=== PATIENT | female | born 1945 | race Caucasian/White ===

== ENCOUNTER 2020-02-24 09:47 | Inpatient (IN) | payer OTHER ==
[2020-02-24 10:13] LABS: Basophils % 0.5 % (0-1.3); Lymphocytes % 18.2 % (15.3-44.8); RBC Red Blood Cell Count 3.29 M/uL (3.86-4.86)
[2020-02-24 10:19] LABS: Protime INR 0.99
[2020-02-24 10:36] LABS: ALT/SGPT 20 U/L (12-78); AST/SGOT 19 U/L (15-37); Albumin 2.7 g/dL (3.4-5.0); Alkaline Phosphatase 105 U/L (45-117); BUN Blood Urea Nitrogen 27 mg/dL (7-18); Bicarbonate 29 mmol/L (21-32); Bilirubin Direct < 0.1 mg/dL (0-0.2); Bilirubin Total 0.3 mg/dL (0.2-1.0); Glucose Level 84 mg/dL (74-106); Magnesium 2.1 mg/dL (1.8-2.4); NT PRO-BNP 202 pg/mL (<450); Potassium 4.1 mmol/L (3.5-5.1); Sodium Level 144 mmol/L (136-145); Troponin (Emerg Dept Use Only) < 0.02 ng/mL (0.0-0.045)
[2020-02-24] MEDS ORDERED: NA CHLORIDE 0.9% 1,000 ML ONE (10:44)
--- NOTE | 2020-02-24 11:08 | ER ---
Nurse's Notes [facility] Name: Emily Rodriguez Age: 74 yrs Sex: Female : 1945 Arrival Date: 02/24/2020 Time: 09:48 Bed 3 Private MD: Diagnosis: Displaced intertrochanteric fracture of left femur;Fall due to bumping against object Presentation: 02/23 09:48 Chief complaint: EMS states: pt from [facility], staff said she got tangled in the tw2 sheets, then tripped \T\ fell, NO LOC, staff found her right away, they noticed outward rotation of LEFT leg and hip pain, we gave 50 mcg of Fentanyl and approx 500 ml NS, vs 90/47 hr 50's staff said that was her normal, pt also has dementia a\T\o x1 only which is her baseline. Coronavirus screen: At this time, the client does not indicate any symptoms associated with coronavirus-19. Ebola Screen: Patient denies travel to an Ebola-affected area in the 21 days before illness onset. Initial Sepsis Screen: Does the patient meet any 2 criteria? No. Patient's initial sepsis screen is negative. Does the patient have a suspected source of infection? No. Patient's initial sepsis screen is negative. Risk Assessment: Do you want to hurt yourself or someone else? Patient reports no desire to harm self or others. Onset of symptoms was February 24, 2020. 09:48 Method Of Arrival: EMS: [facility] tw2 09:49 Care prior to arrival: None. Mechanism of Injury: Fall from standing position. hb 09:55 Acuity: MARYLIN 2 hb 09:55 Trauma event details: Injury occurred in the [facility], Injury occurred: at home. Injury occurred: February 24, 2020. Triage Assessment: 09:52 General: Appears in no apparent distress. Behavior is calm. Pain: Complains of pain in tw2 left hip. Neuro: Level of Consciousness is awake, alert, Oriented to person. Trauma Activation: Alert Physician: ED Physician; Name: ; Notified At: ; Arrived At: Physician: General Surgeon; Name: ; Notified At: ; Arrived At: Physician: Radiology; Name: ; Notified At: ; Arrived At: Physician: Respiratory; Name: ; Notified At: ; Arrived At: Physician: Lab; Name: ; Notified At: ; Arrived At: Historical: - Allergies: 10:06 No Known Allergies; tw2 - Home Meds: 10:06 atorvastatin 20 mg oral tab 1 tab once daily [Active]; cosentyx sensoready pen 150 tw2 mg/ml SubQ once a day for psoriasis [Active]; donepezil 5 mg oral TbDL 1 tab once daily [Active]; donepezil 10 mg oral tab 1 tab once daily [Active]; folic acid 1 mg Oral tab 1 tab once daily [Active]; Invokana 100 mg oral tab 1 tab once daily [Active]; Januvia 100 mg oral tab 1 tab once daily [Active]; Levemir FlexTouch 100 unit/mL (3 mL) subcutaneous inpn 20 units subq in morning [Active]; Lexapro 10 mg Oral tab 1 tab once daily [Active]; mirtazapine 15 mg Oral TbDL 1 tab once daily [Active]; - PMHx: 10:06 Dementia; Diabetes - IDDM; osteoarthritis; GERD; CAD; tw2 - Immunization history: Last tetanus immunization: unknown. - Social history:: Smoking status: unknown. Screenin:51 Abuse screen: Denies threats or abuse. Denies injuries from another. Tuberculosis hb screening: No symptoms or risk factors identified. 09:53 Nutritional screening: No deficits noted. Fall Risk Secondary diagnosis (15 points) tw2 dementia, impaired mobility. Primary Survey: :49 NO uncontrolled hemorrhage observed. A: The patient is alert. Airway: patent, No hb supplemental oxygen in use on arrival. Breathing/Chest: Respiratory pattern: regular, Respiratory effort: spontaneous, unlabored, Breath sounds: clear, bilaterally. Chest inspection: symmetrical rise and fall of the chest. Circulation: Pulses: palpable right radial artery, right dorsalis pedis artery, left radial artery and left dorsalis pedis artery. Skin color: pale, Skin temperature: warm, dry. Disability Alert. Exposure/Environment: There is no evidence of uncontrolled external bleeding. 10:48 Reassessment Airway Airway Patent Breathing/Chest Respiratory pattern Regular tw2 Respiratory effort Spontaneous Unlabored Breath sounds Clear Chest inspection Symmetrical Circulation Heart tones Present Disability Alert. Secondary Survey: :49 HEENT: No deficits noted. Gastrointestinal: No deficits noted. : No deficits noted. hb Musculoskeletal: shortening and external rotation of left leg, pelvic binder in place. Assessment: 09:51 General: Appears in no apparent distress. Behavior is cooperative, agitated. Pain: hb Unable to use pain scale. Does not appear to understand pain scale. Patient appears agitated, FLACC scale score is 6 out of 10. Neuro: Level of Consciousness is awake, alert, confused, Oriented to person. EENT: No signs and/or symptoms were reported regarding the EENT system. Cardiovascular: Heart tones S1 S2 Capillary refill < 3 seconds Patient's skin is warm and dry. Pulses are 3+ in left dorsalis pedis artery. Respiratory: Airway is patent Respiratory effort is even, unlabored, Respiratory pattern is regular, symmetrical, Breath sounds are clear bilaterally. GI: No signs and/or symptoms were reported involving the gastrointestinal system. : No signs and/or symptoms were reported regarding the genitourinary system. Derm: Skin is intact, is thin, Skin is dry, Skin is pale, Skin temperature is warm. Musculoskeletal: shortening and external rotation of left leg noted, pelvic binder in place. 10:43 Reassessment: No changes from previously documented assessment. Patient and/or family tw2 updated on plan of care and expected duration. Pain level reassessed. pt back from imaging at this time. 11:50 Reassessment: No changes from previously documented assessment. Patient and/or family tw2 updated on plan of care and expected duration. Pain level reassessed. 13:04 Reassessment: No changes from previously documented assessment. Patient and/or family tw2 updated on plan of care and expected duration. Pain level reassessed. 13:43 Reassessment: No changes from previously documented assessment. Patient and/or family tw2 updated on plan of care and expected duration. Pain level reassessed. Vital Signs: 09:48 BP 86 / 70; Pulse 53; Resp 16; Pulse Ox 98% on R/A; Weight 81.65 kg (R); tw2 10:00 Temp 97.8(A); tw2 10:55 BP 102 / 52; Pulse 56; Resp 16; Pulse Ox 100% on R/A; tw2 11:55 BP 95 / 51; Pulse 61; Resp 17; Pulse Ox 100% on R/A; tw2 12:55 BP 96 / 57; Pulse 69; Resp 16; Pulse Ox 100% on R/A; tw2 13:43 BP 95 / 52; Pulse 64; Resp 16; Pulse Ox 96% on R/A; tw2 Alice Coma Score: 09:51 Eye Response: spontaneous(4). Verbal Response: confused(4). Motor Response: obeys hb commands(6). Total: 14. Trauma Score (Adult): 09:51 Eye Response: spontaneous(1); Verbal Response: confused(1); Motor Response: obeys hb commands(2); Systolic BP: 76 to 89 mm Hg(3); Respiratory Rate: 10 to 29 per min(4); Morris Score: 14; Trauma Score: 11 ED Course: 09:48 Patient arrived in ED. tw2 09:48 Maintain EMS IV. Dressing intact. Good blood return noted. Site clean \T\ dry. Gauge \T\ tw 2 site: 20 g right forearm. 09:51 Sushil Garzon MD is Attending Physician. jackie 09:51 Brenda Calloway, RN is Primary Nurse. hb 09:51 Patient has correct armband on for positive identification. Placed in gown. Bed in low hb position. Call light in reach. Side rails up X2. 09:51 Patient maintains SpO2 saturation greater than 95% on room air. hb 09:52 Triage completed. tw2 09:53 Arm band placed on. tw2 09:53 Thermoregulation: warm blanket given to patient. tw2 10:17 EKG done, by ED staff, reviewed by Sushil Garzon MD. mh5 10:40 XRAY Chest (1 view) In Process Unspecified. EDMS 10:40 Pelvis XRAY In Process Unspecified. EDMS 10:40 Hip Left 2 View XRAY In Process Unspecified. EDMS 10:40 Femur Left XRAY In Process Unspecified. EDMS 10:50 Hamlin cath inserted, using sterile technique, 18 Fr., by de, balloon inflated, to tw2 gravity drainage, urine specimen collected. returned cloudy urine. Patient tolerated well. Noemi Pompa at bedside at this time to serve as tent worker and assist with pt trying to grab at supplies. 11:00 Urine collected: Hamlin catheter specimen, cloudy. [facility] 11:01 Warm blanket given. teletypesetter monitor on. Pulse ox on. NIBP on. [facility] 11:05 Velasquez Navas is Hospitalizing Provider. jackie 11:11 Harvey Moreno MD is Hospitalizing Provider. jackie 11:[address] [facility] 12:26 Spoke with Deb at [facility] re: next of kin contact for surgery consent, will have asmita Beard call lashell. 13:05 Patient admitted, IV remains in place. tw2 13:06 No provider procedures requiring assistance completed. tw2 13:07 Awaiting: unsuccessful attempt to call report at this time. tw2 Administered Medications: 10:48 Drug: NS 0.9% 500 ml Route: IV; Rate: bolus; Site: right hand; tw2 11:14 Follow up: Response: No adverse reaction; IV Intake: 500ml tw2 11:14 Follow up: IV Status: Completed infusion; IV Intake: 500ml tw2 11:14 Drug: NS 0.9% 1000 ml Route: IV; Rate: 125 ml/hr; Site: right wrist; tw2 13:33 Follow up: IV Status: Infusion continued upon admission tw2 13:40 Drug: D50W 50 ml Route: IVP; Site: right forearm; 13:44 Follow up: Response: No adverse reaction tw2 Point of Care Testing: Blood Glucose: 13:35 Blood Glucose: 68 mg/dL; tw2 13:35 provider notified. tw2 Ranges: Intake: 09:51 PO: 0ml; Total: 0ml. hb 11:14 IV: 500ml; Total: 500ml. tw2 11:14 IV: 500ml; Total: 1000ml. tw2 Outcome: 11:07 Decision to Hospitalize by Provider. [facility] 13:05 Patient's length of stay in the Emergency Department was greater than 2 hours. tw2 admission processPatient's length of stay extended due to 13:43 Admitted to Med/surg accompanied by noemi, via stretcher, room 215, with chart, Report tw2 called to RED lamas 13:43 Condition: stable 13:43 Instructed on the need for admit. 13:45 Patient left the ED. tw2 Signatures: Dispatcher [employer] Sushil Whyte MD MD cha Munoz, Edgar, RN RN Brenda Calloway RN RN Ana De La Torre RN RN [address] [facility] Corrections: (The following items were deleted from the chart) 09:56 09:48 Acuity: MARYLIN 3 tw2 hb 09:57 09:49 Trauma event details: Injury occurred in the [facility], Injury occurred: hb at home. Injury occurred: February 24, 2020 hb 09:57 09:49 Trauma Activation: Alert hb hb : 09:48 Acuity: MARYLIN 2 hb hb 10: 09:48 Chief complaint: EMS states: pt from [facility], staff said she got tangled in tw2 the sheets, then tripped \T\ fell, NO LOC, staff found her right away, they noticed outward rotation of LEFT leg and hip pain, we gave 50 mcg of Fentanyl and approx 500 ml NS, vs 90/47 hr 50's staff said that was her normal tw2 10:43 10:42 Reassessment: pt in imaging at this time not available for vs or hamlin catheter tw2 insertion at this time. tw2 10:56 10:43 Reassessment Breathing/Chest tw2 tw2
--- NOTE | 2020-02-24 11:08 | EDPHYS ---
Physician Documentation [facility] Name: Emily Rodriguez Age: 74 yrs Sex: Female : 1945 Arrival Date: 02/24/2020 Time: 09:48 Bed 3 Private MD: ED Physician Sushil Garzon HPI: 02/23 09:56 This 74 yrs old Female presents to ER via EMS with complaints of Fall Injury, jackie Hip Pain. 09:56 Details of fall: The patient fell from an upright position, while walking. Onset: The jackie symptoms/episode began/occurred just prior to arrival. Associated injuries: The patient sustained left hip and left upper thigh, decreased range of motion, painful injury. Severity of symptoms: At their worst the symptoms were mild, moderate, in the emergency department the symptoms are unchanged. The patient has not experienced similar symptoms in the past. Historical: - Allergies: 10:06 No Known Allergies; tw2 - Home Meds: 10:06 atorvastatin 20 mg oral tab 1 tab once daily [Active]; cosentyx sensoready pen 150 tw2 mg/ml SubQ once a day for psoriasis [Active]; donepezil 5 mg oral TbDL 1 tab once daily [Active]; donepezil 10 mg oral tab 1 tab once daily [Active]; folic acid 1 mg Oral tab 1 tab once daily [Active]; Invokana 100 mg oral tab 1 tab once daily [Active]; Januvia 100 mg oral tab 1 tab once daily [Active]; Levemir FlexTouch 100 unit/mL (3 mL) subcutaneous inpn 20 units subq in morning [Active]; Lexapro 10 mg Oral tab 1 tab once daily [Active]; mirtazapine 15 mg Oral TbDL 1 tab once daily [Active]; - PMHx: 10:06 Dementia; Diabetes - IDDM; osteoarthritis; GERD; CAD; tw2 - Immunization history: Last tetanus immunization: unknown. - Social history:: Smoking status: unknown. ROS: 09:58 Constitutional: Negative for fever, chills, and weight loss, Eyes: Negative for injury, jackie pain, redness, and discharge, ENT: Negative for injury, pain, and discharge, Neck: Negative for injury, pain, and swelling, Cardiovascular: Negative for chest pain, palpitations, and edema, Respiratory: Negative for shortness of breath, cough, wheezing, and pleuritic chest pain, Abdomen/GI: Negative for abdominal pain, nausea, vomiting, diarrhea, and constipation, Back: Negative for injury and pain, : Negative for injury, bleeding, discharge, and swelling, Skin: Negative for injury, rash, and discoloration, Neuro: Negative for headache, weakness, numbness, tingling, and seizure, Psych: Negative for depression, anxiety, suicide ideation, homicidal ideation, and hallucinations, Allergy/Immunology: Negative for hives, rash, and allergies, Endocrine: Negative for neck swelling, polydipsia, polyuria, polyphagia, and marked weight changes, Hematologic/Lymphatic: Negative for swollen nodes, abnormal bleeding, and unusual bruising. 09:58 MS/extremity: Positive for injury or acute deformity, decreased range of motion, pain, tenderness, of the left hip and left upper thigh. Exam: 09:58 Constitutional: This is a well developed, well nourished patient who is awake, alert, jackie and in no acute distress. Head/Face: Normocephalic, atraumatic. Eyes: Pupils equal round and reactive to light, extra-ocular motions intact. Lids and lashes normal. Conjunctiva and sclera are non-icteric and not injected. Cornea within normal limits. Periorbital areas with no swelling, redness, or edema. ENT: Nares patent. No nasal discharge, no septal abnormalities noted. Tympanic membranes are normal and external auditory canals are clear. Oropharynx with no redness, swelling, or masses, exudates, or evidence of obstruction, uvula midline. Mucous membranes moist. Neck: Trachea midline, no thyromegaly or masses palpated, and no cervical lymphadenopathy. Supple, full range of motion without nuchal rigidity, or vertebral point tenderness. No Meningismus. Chest/axilla: Normal chest wall appearance and motion. Nontender with no deformity. No lesions are appreciated. Cardiovascular: Regular rate and rhythm with a normal S1 and S2. No gallops, murmurs, or rubs. Normal PMI, no JVD. No pulse deficits. Respiratory: Lungs have equal breath sounds bilaterally, clear to auscultation and percussion. No rales, rhonchi or wheezes noted. No increased work of breathing, no retractions or nasal flaring. Abdomen/GI: Soft, non-tender, with normal bowel sounds. No distension or tympany. No guarding or rebound. No evidence of tenderness throughout. Back: No spinal tenderness. No costovertebral tenderness. Full range of motion. Female : Normal external genitalia. Skin: Warm, dry with normal turgor. Normal color with no rashes, no lesions, and no evidence of cellulitis. Psych: Awake, alert, with orientation to person, place and time. Behavior, mood, and affect are within normal limits. 09:58 Musculoskeletal/extremity: ROM: limited active range of motion due to pain, limited passive range of motion due to pain, Circulation is intact in all extremities. Sensation intact. Compartment Syndrome exam of affected extremity: is normal. Weight bearing: is unable to bear weight, DVT Exam: negative Homans' sign noted on exam, no appreciated bluish discoloration, no erythema, no increased warmth, pain, swelling, tenderness. 16:22 ECG was reviewed by the Attending Physician. [facility] Vital Signs: 09:48 BP 86 / 70; Pulse 53; Resp 16; Pulse Ox 98% on R/A; Weight 81.65 kg (R); tw2 10:00 Temp 97.8(A); tw2 10:55 BP 102 / 52; Pulse 56; Resp 16; Pulse Ox 100% on R/A; tw2 11:55 BP 95 / 51; Pulse 61; Resp 17; Pulse Ox 100% on R/A; tw2 12:55 BP 96 / 57; Pulse 69; Resp 16; Pulse Ox 100% on R/A; tw2 13:43 BP 95 / 52; Pulse 64; Resp 16; Pulse Ox 96% on R/A; tw2 Alice Coma Score: 09:51 Eye Response: spontaneous(4). Verbal Response: confused(4). Motor Response: obeys hb commands(6). Total: 14. Trauma Score (Adult): 09:51 Eye Response: spontaneous(1); Verbal Response: confused(1); Motor Response: obeys hb commands(2); Systolic BP: 76 to 89 mm Hg(3); Respiratory Rate: 10 to 29 per min(4); Alice Score: 14; Trauma Score: 11 MDM: 09:51 Patient medically screened. [facility] 09:59 Differential diagnosis: dislocation, closed fracture, contusion, hip fracture, jackie intertrochanteric fracture, femoral neck fracture, femoral shaft fracture, strain. Differential diagnosis: contusion, fracture, multiple trauma, sprain, strain. Data reviewed: vital signs, nurses notes, EMS record, lab test result(s), EKG, radiologic studies, plain films. Data interpreted: event marketing manager: rate is 53 beats/min, rhythm is regular, Pulse oximetry: on room air is 98 %. Test interpretation: by ED physician or midlevel provider: ECG, plain radiologic studies. Counseling: I had a detailed discussion with the patient and/or guardian regarding: the historical points, exam findings, and any diagnostic results supporting the discharge/admit diagnosis, lab results, radiology results, the need for further work-up and treatment in the hospital. 11:04 ED course: to dr navas, henrique krishna. [facility] 02/23 09:55 Order name: Basic Metabolic Panel; Complete Time: 11:03 [facility] 02/23 09:55 Order name: CBC with Diff; Complete Time: 11: [facility] 02/23 09:55 Order name: LFT's; Complete Time: 11: [facility] 02/23 09:55 Order name: Magnesium; Complete Time: 11:03 [facility] 02/23 09:55 Order name: NT PRO-BNP; Complete Time: 11:03 [facility] 02/23 09:55 Order name: PT-INR; Complete Time: 11:03 [facility] 02/23 09:55 Order name: Troponin (emerg Dept Use Only); Complete Time: 11:03 [facility] 02/23 09:55 Order name: Urine Culture [facility] 02/23 09:55 Order name: Type And Screen; Complete Time: 11:03 [facility] 02/23 11:06 Order name: Urine Dipstick--Ancillary (enter results) 02/23 11:41 Order name: ABO/RH no charge [facility] 02/23 12:13 Order name: CBC with Automated Diff [facility] 02/23 12:13 Order name: CBC with Automated Diff [facility] 02/23 12:13 Order name: Comprehensive Metabolic Panel [facility] 02/23 09:55 Order name: XRAY Chest (1 view) [facility] 02/23 09:55 Order name: Pelvis XRAY [facility] 02/23 09:55 Order name: Hip Left 2 View XRAY [facility] 02/23 09:55 Order name: Femur Left XRAY [facility] 02/23 12:13 Order name: Comprehensive Metabolic Panel [facility] 02/23 12:13 Order name: Magnesium [facility] 02/23 12:13 Order name: Magnesium [facility] 02/23 12:13 Order name: Phosphorus [facility] 02/23 12:13 Order name: Phosphorus [facility] 02/23 12:13 Order name: Protime (+INR) [facility] 02/23 12:13 Order name: Protime (+INR) [facility] 02/23 12:13 Order name: PTT, Activated Partial Thromb [facility] 02/23 12:13 Order name: PTT, Activated Partial Thromb [facility] 02/23 09:55 Order name: EKG; Complete Time: 09:56 [facility] 02/23 09:55 Order name: Cardiac monitoring; Complete Time: 10:00 [facility] 02/23 09:55 Order name: EKG - Nurse/Tech; Complete Time: 10:17 [facility] 02/23 09:55 Order name: IV Saline Lock; Complete Time: 10:56 [facility] 02/23 09:55 Order name: Labs collected and sent; Complete Time: 10:56 [facility] 02/23 09:55 Order name: O2 Per Protocol; Complete Time: 10:00 [facility] 02/23 09:55 Order name: O2 Sat Monitoring; Complete Time: 10:00 [facility] 02/23 09:55 Order name: Urine Dipstick-Ancillary (obtain specimen); Complete Time: 10:56 [facility] 02/23 10:01 Order name: Browne; Complete Time: 10:34 [facility] 02/23 12:13 Order name: CONS Physician Consult [facility] 02/23 12:13 Order name: NPO [facility] 02/23 13:32 Order name: Blood Glucose Level; Complete Time: 13:34 tw2 EC:07 Rate is 52 beats/min. Rhythm is regular. QRS Cam[place] is Normal. CO interval is normal. QRS jackie interval is normal. QT interval is normal. No Q waves. T waves are Normal. No ST changes noted. Clinical impression: Sinus bradycardia. Interpreted by me. Reviewed by me. Administered Medications: 10:48 Drug: NS 0.9% 500 ml Route: IV; Rate: bolus; Site: right hand; tw2 11:14 Follow up: Response: No adverse reaction; IV Intake: 500ml tw2 11:14 Follow up: IV Status: Completed infusion; IV Intake: 500ml tw2 11:14 Drug: NS 0.9% 1000 ml Route: IV; Rate: 125 ml/hr; Site: right wrist; tw2 13:33 Follow up: IV Status: Infusion continued upon admission tw2 13:40 Drug: D50W 50 ml Route: IVP; Site: right forearm; em 13:44 Follow up: Response: No adverse reaction tw2 Point of Care Testing: Blood Glucose: 13:35 Blood Glucose: 68 mg/dL; tw2 13:35 provider notified. tw2 Ranges: Critical Glucose Levels:Adult <50 mg/dl or >400 mg/dl <40 mg/dl or >180 mg/dl Disposition: 02/24/20 11:07 Hospitalization ordered by Harvey Moreno for Inpatient Admission. Preliminary diagnosis are Displaced intertrochanteric fracture of left femur, Fall due to bumping against object. - Bed requested for Telemetry/MedSurg (Inpatient). - Status is Inpatient Admission. tw2 - Condition is Stable. - Problem is new. - Symptoms have improved. Signatures: Dispatcher [employer] EDSushil Luz MD MD cha Munoz, Edgar, RN RN Brenda Calloway RN RN Ana Pruitt RN RN tw2 Beth Perry Corrections: (The following items were deleted from the chart) 11:11 11:07 Hospitalization Ordered by Velasquez Navas for Inpatient Admission. Preliminary jackie diagnosis is Displaced intertrochanteric fracture of left femur; Fall due to bumping against object. Bed requested for Telemetry/MedSurg (Inpatient). Status is Inpatient Admission. Condition is Stable. Problem is new. Symptoms have improved. jackie 12:24 11:11 02/24/2020 11:07 Hospitalization Ordered by Harvey Moreno MD for Inpatient eb Admission. Preliminary diagnosis is Displaced intertrochanteric fracture of left femur; Fall due to bumping against object. Bed requested for Telemetry/MedSurg (Inpatient). Status is Inpatient Admission. Condition is Stable. Problem is new. Symptoms have improved. jackie 13:45 12:24 02/24/2020 11:07 Hospitalization Ordered by Harvey Moreno MD for Inpatient tw2 Admission. Preliminary diagnosis is Displaced intertrochanteric fracture of left femur; Fall due to bumping against object. Bed requested for Telemetry/MedSurg (Inpatient). Status is Inpatient Admission. Condition is Stable. Problem is new. Symptoms have improved. eb
[2020-02-24 11:26] LABS: Urine Blood NEGATIVE (NEG); Urine Glucose 3+ (NEG); Urine Protein NEGATIVE (NEG); Urine Specific Gravity 1.025 (1.005-1.030)
--- NOTE | 2020-02-24 11:46 | RAD REPORT ---
EXAM DESCRIPTION: RAD - Chest Single View - 02/24/2020 10:40 am CLINICAL HISTORY: COUGH, hip fracture, preoperative examination COMPARISON: None TECHNIQUE: AP portable chest image was obtained 02/24/2020 10:40 am . FINDINGS: Lung volumes are relatively low. No pulmonary contusion, infiltrate or acute lung parenchy mal finding. Patient has a mildly prominent baseline interstitial pattern. No failure or volume overl oad seen. Heart and vasculature are normal. No measurable pleural effusion and no pneumothorax. No acute bony abnormality seen. No acute aortic findings suspected. IMPRESSION: No acute cardiopulmonary process.
--- NOTE | 2020-02-24 11:47 | RAD REPORT ---
EXAM DESCRIPTION: RAD - Pelvis - 02/24/2020 10:40 am CLINICAL HISTORY: PAIN, trip and fall COMPARISON: No comparisons TECHNIQUE: AP imaging of the pelvis was obtained. FINDINGS: Degenerative change present at the lumbosacral junction only partially imaged on this stud y. Bowel partially obscures the sacral ala but no fracture confirmed. SI joint degenerative changes a re present. No fracture of the bony pelvis identifiable. Left proximal femur fracture is separately detailed. No acute right hip joint finding. Moderate stool volume throughout the colon. Phleboliths are present. IMPRESSION: No fracture of the bony pelvis identified. Proximal left femur fracture is separately detailed.
--- NOTE | 2020-02-24 11:51 | RAD REPORT ---
EXAM DESCRIPTION: RAD - Hip Left 2 View - 02/24/2020 10:40 am CLINICAL HISTORY: PAIN, fall, hip pain COMPARISON: No comparisons FINDINGS: AP and oblique views of the left hip joint were obtained. Patient had limited mobility. Comminuted proximal left femur fracture is present. No dislocation of the femoral head. No AVN or foc al femoral head abnormality. Lesser trochanter is a free fracture fragment with the fracture fragment extending approximately 4 cm along the medial shaft. There is an oblique intertrochanteric fracture present. Superior aspect of the greater trochanter also appears to be a free fracture fragment with o nly a few mm of distraction. No pathologic bone changes seen. Soft tissue edema or swelling present around the hip joint but no large hematoma identifiable. IMPRESSION: Comminuted proximal left femur fracture as detailed.
--- NOTE | 2020-02-24 11:53 | RAD REPORT ---
EXAM DESCRIPTION: RAD - Femur Left - 02/24/2020 10:40 am CLINICAL HISTORY: PAIN, fall, hip pain COMPARISON: Left hip same date FINDINGS: The proximal left femur, hip joint and proximal shaft visualized in detailed on the separa te hip report. The mid and distal shaft of the left femur is intact. No femoral condyle or patella acute finding. Li mited proximal tibia without suspicious finding. There is a focal 3 centimeter are can ring sclerotic focus at the diaphyseal metaphyseal junction of the distal left femur. This is incidental bone infar ct or enchondroma. There is no dislocation or periosteal reaction noted. No acute or suspicious bony finding. No air or foreign body in the soft tissues. No knee joint effusion. IMPRESSION: Left femur from midshaft to the proximal tibia shows no acute injury. Nonacute findings detailed in the body of the report. Proximal femur and hip joint are separately detailed.
[2020-02-24] MEDS ORDERED: ONDANSETRON 4 MG/2 ML VIAL IV PRN (12:06)
--- NOTE | 2020-02-24 13:38 | CON ---
Date of Consultation: 02/24/2020 History Of Present Illness: This is my first time seeing this patient to my knowledge. She is a 74- year-old female, who is a resident of a nursing facility. Unfortunately suffers from dementia. Appa rently, had an injury to her left lower extremity. She was taken to the emergency room where she was ruled out for other injuries. However, x-rays were taken, which demonstrated a displaced highly com minuted left proximal femur fracture. Physical Examination: She really is not able to tell me where she hurts. However, with palpation we can demonstrate that h er pain is essentially at the left hip. All of her other long bones or joints palpated without any s ign of pain. She is interactive but definitely cannot answer any questions appropriately. Imaging: Review of x-rays do reveal a comminuted displaced proximal left femur fracture. Assessment: This is a 74-year-old female now with a comminuted complex left proximal femur fracture. Plan: At this time, will need probably medical evaluation, but the plan is to place a long intramedu llary nail tomorrow using either open or closed reduction techniques. I attempted to call her next o f kin listed, however, only obtain a voicemail. She may not be there direct person to speak to. How ever, I will try another number. /REFUGIO Voice ID: [id number] Report ID: [id number]
[2020-02-24] MEDS ORDERED: D50W 25 GM/50 ML SYRINGE/VIAL IV ONE (13:48)
[2020-02-24] MEDS: NA CHLORIDE 0.9% 1,000 ML IV SCH (14:23)
[2020-02-24 15:24] VITALS: BMI 25.8
--- NOTE | 2020-02-24 16:29 | P.HP ---
Certification for Inpatient Patient admitted to: Inpatient With expected LOS: >2 Midnights Patient will require the following post-hospital care: None Practitioner: I am a practitioner with admitting privileges, knowledge of patient current condition, hospital course, and medical plan of care. Services: Services provided to patient in accordance with Admission requirements found in Title 42 Section 412.3 of the Code of Federal Regulations Patient History Date of Service: 02/24/20 Reason for admission: Status post fall with femur fracture History of Present Illness: Patient is a 74-year-old female who came to the hospital with left femur fracture. Patient was at the nursing facility and she apparently suffered a fall. She had her bedsheets draped around her legs. She was hollering in pain. Her bed sheets were moved, and it was noticed that she had possible injury to the left leg. EMS was called and they brought her into the hospital where x- rays revealed a left femur fracture. She had a proximal fracture and a oblique intertrochanteric fracture. She has a history of hypertension and coronary artery disease. She has had no cardiac issues over the last couple of years according to. Will get EKG and chest x-ray. She is low risk for any cardiopulmonary complications. She has a history of dementia. She is ambulatory. She normally walks around by herself. Benefits of surgery outweigh the risk. Patient is also a Jehovah Witness and does not want blood transfusions according to family per emergency room. I did contact contact the family but was not able to contact them at the 2 numbers I called-these were in her computer chart. Allergies No Known Allergies Allergy (Unverified 02/24/20 14:19) Home Medications: Atorvastatin Calcium 20 mg PO BEDTIME 02/24/20 Canagliflozin [Invokana] 1 tab PO DAILY 02/24/20 Donepezil [Aricept*] 2 tab PO BEDTIME 02/24/20 Escitalopram Oxalate [Lexapro] 1 tab PO DAILY 02/24/20 Folic Acid 1 mg PO DAILY 02/24/20 Insulin Detemir [Levemir Flextouch] 20 unit SQ DAILY 02/24/20 Mirtazapine 15 mg PO BEDTIME 02/24/20 Secukinumab [Cosentyx Pen] 150 mg SQ SEECOM 02/24/20 Sitagliptin Phosphate [Januvia*] 1 tab PO DAILY 09/12/20 Skin Cleanser [Cetaphil] 1 silvano TOP BEDTIME 02/24/20 - Past Medical/Surgical History Diabetic: Yes -: Dementia -: IDDM -: Osteoarthritis -: GERD -: CAD Past Surgical History: Unable to obtain - Family History Mother History Unknown: Yes Notes: Dementia - Social History Smoking Status: Never smoker Place [facility]idence[facility] Review of Systems is unable to be obtained Physical Examination - Vital Signs Temperature: 97.8 F Blood Pressure: 95/52 Pulse: 64 Respirations: 16 - Physical Exam General: Alert, In no apparent distress, Demented HEENT: Atraumatic, PERRLA, Mucous membr. moist/pink, EOMI, Sclerae nonicteric Neck: Supple, 2+ carotid pulse no bruit, No LAD, Without JVD or thyroid abnormality Respiratory: Clear to auscultation bilaterally, Normal air movement Cardiovascular: Regular rate/rhythm, Normal S1 S2 Gastrointestinal: Normal bowel sounds, Soft and benign, Non-distended, No tenderness Musculoskeletal: No clubbing, Tenderness, Other (Outward deviation of left leg) Integumentary: Other (Bruising) Neurological: Normal speech, Sensation intact, Cranial nerves 3-12 intact, Abnormal gait, Abnormal strength - Studies Laboratory Data (last 24 hrs) 02/24/20 10:05: PT 11.7, INR 0.99 02/24/20 10:05: WBC 11.1 H, Hgb 9.1 L, Hct 28.0 L, Plt Count 233 02/24/20 10:05: Sodium 144, Potassium 4.1, BUN 27 H, Creatinine 0.84, Glucose 84, Magnesium 2.1, Total Bilirubin 0.3, AST 19, ALT 20, Alkaline Phosphatase 105 Assessment & Plan - Problems (Diagnosis) (1) Femur fracture, left Current Visit: Yes Status: Acute Qualifiers: Encounter type: initial encounter Femur location: intertrochanteric Fracture type: closed Fracture alignment: nondisplaced Qualified Code(s): S72.145A - Nondisplaced intertrochanteric fracture of left femur, initial encounter for closed fracture (2) Alzheimer's type dementia Current Visit: Yes Status: Acute (3) Hypertension Current Visit: Yes Status: Acute (4) Coronary artery disease Current Visit: Yes Status: Acute (5) Patient is Presybeterian Current Visit: Yes Status: Acute - Plan Plan: 1. IV hydration 2. Orthopedic consultation 3. Pain controlled 4. DVT prophylaxis-Will hold around the perioperative period as patient is a Jehovah Witness and does not want blood transfusions 5. Physical therapy after surgery 6. EKG and monitor hemodynamics closely. 7. Benefits of surgery outweigh the risk and would recommend proceeding with surgery at this time; patient has not had any cardiac issues in the last few years. She does suffer from severe Alzheimer's dementia, but she gets around very well physically. If she is debilitated than morbidity and mortality rates increase significantly over the next 6 months. Discharge Plan: [facility] Plan to discharge in: Greater than 2 days - Advance Directives Does patient have a Living Will: Yes Does patient have a Durable POA for Healthcare: Yes - Code Status/Comfort Care Code Status Assessed: Yes Code Status: Full Code Critical Care: No Time Spent Managing PTS Care (In Minutes): 45
[2020-02-24] MEDS ORDERED: SECUKINUMAB 150 MG SQ SCH (16:30)
[2020-02-24] MEDS: CEFAZOLIN/SWI 1gm 1 GM/10 ML SYR IVP SCH (17:27)
[2020-02-24] MEDS ORDERED: CEFAZOLIN/SWI 1gm 1 GM/10 ML SYR IV SCH (18:00)
[2020-02-24] MEDS ORDERED: CEFAZOLIN/NS 1gm 1 GM/50 ML BAG IVPB SCH (18:00)
[2020-02-24] MEDS ORDERED: CEFAZOLIN/SWI 1gm 1 GM/10 ML SYR IVP SCH (18:00)
[2020-02-24] MEDS: MIRTAZAPINE 15 MG TAB PO SCH (22:17)
[2020-02-24] MEDS: DONEPEZIL HCL 5 MG TAB PO SCH (22:18)
[2020-02-24] MEDS: ATORVASTATIN 20 MG TAB PO SCH (22:19)
[2020-02-25] MEDS: CEFAZOLIN/SWI 1gm 1 GM/10 ML SYR IVP SCH ×3 (00:03→16:15)
[2020-02-25] MEDS: NA CHLORIDE 0.9% 1,000 ML IV SCH ×2 (01:34→16:15)
[2020-02-25 06:37] LABS: Absolute Lymphocytes (CBC) 1.1 K/uL (0.7-4.9); Basophils % 0.4 % (0-1.3); Hematocrit 21.9 % (36.0-45.0); Lymphocytes % 14.4 % (15.3-44.8); MPV 8.2 fL (7.6-11.3); RBC Red Blood Cell Count 2.57 M/uL (3.86-4.86)
[2020-02-25 06:40] LABS: Albumin 2.7 g/dL (3.4-5.0); Bilirubin Total 0.5 mg/dL (0.2-1.0); Magnesium 2.2 mg/dL (1.8-2.4); Phosphorus 3.5 mg/dL (2.5-4.9); Potassium 3.9 mmol/L (3.5-5.1); Protein, Total 5.9 g/dL (6.4-8.2)
[2020-02-25 07:03] LABS: Protime INR 1.05
[2020-02-25] MEDS ORDERED: propofoL 200 MG/20 ML VIAL IV ONE (08:23)
[2020-02-25] MEDS ORDERED: FENTANYL CITR 100 MCG/2 ML ONE (08:25)
[2020-02-25] MEDS ORDERED: Phenylephrine HCl 10 MG/ML 1 ML VIAL ONE (08:27)
[2020-02-25] MEDS ORDERED: CEFAZOLIN/SWI 1gm 1 GM/10 ML SYR ONE (08:44)
[2020-02-25] MEDS ORDERED: dexAMETHasone 10 MG/ML VIAL ONE (08:57)
[2020-02-25] MEDS ORDERED: KETOROLAC 30 MG/ML INJ ONE (08:57)
[2020-02-25] MEDS: INSULIN GLARGINE 100 UNITS/ML SQ SCH (09:00)
[2020-02-25] MEDS: ESCITALOPRAM 20 MG TAB PO SCH (09:00)
[2020-02-25] MEDS: SITAGLIPTIN PHOS 100 MG TAB PO SCH (09:00)
[2020-02-25] MEDS: FOLIC ACID 1 MG TABLET PO SCH (09:00)
[2020-02-25] MEDS ORDERED: KCL 20 MEQ/100 mL IVPB 20 MEQ/100 ML BAG IV SCH (09:00)
[2020-02-25] MEDS ORDERED: TRANEXAMIC ACID 1,000 MG in NA CHLORIDE 0.9% 50 ML IV ONE ×2 (09:00→10:00)
[2020-02-25] MEDS ORDERED: GLYCOPYRROLATE 0.2 MG/ML SYR ONE ×2 (09:21→09:43)
[2020-02-25] MEDS ORDERED: ATROPINE SULF 1 MG/10 ML SYR IV ONE (09:22)
--- NOTE | 2020-02-25 09:46 | EKG ---
Test Date: 2020-02-24 Test Time: 10:07:07 Activities Officer: BHAVIK MEASUREMENT RESULTS: Intervals: Rate: 52 DC: 156 QRSD: 80 QT: 472 QTc: 438 [place]: P: 71 DC: 156 QRS: -28 T: 8 INTERPRETIVE STATEMENTS: Sinus bradycardia Low voltage QRS Borderline ECG No previous ECG available for comparison Electronically Signed On 02-25-20 09:44:24 CDT by Homar Spencer
--- NOTE | 2020-02-25 10:18 | P.BOP ---
Preoperative diagnosis: left highly displaced IT fracture with subtrochanteric extension Postoperative diagnosis: same Primary procedure: left ALYSON leah fixation Estimated blood loss: 100ccs Anesthesia: General Complications: None Transferred to: Recovery Room Condition: Good
[2020-02-25] MEDS ORDERED: MORPHINE 4 MG/ML SYR IV ONE (10:35)
[2020-02-25] MEDS ORDERED: MORPHINE 4 MG/ML SYR ONE (10:46)
[2020-02-25] MEDS ORDERED: CEFAZOLIN/SWI 1gm 1 GM/10 ML SYR IVP SCH (12:00)
--- NOTE | 2020-02-25 12:48 | RAD REPORT ---
EXAM DESCRIPTION: RAD - Hip In Or - 02/25/2020 12:39 pm CLINICAL HISTORY: LEFT HIP IM LORA DONE IN OR 4 WITH DOCTOR ASA COMPARISON: Pelvis dated 02/24/2020 FINDINGS: Fluoroscopy time 3.1 minutes
[2020-02-25] MEDS ORDERED: ENOXAPARIN 40 MG/0.4 ML SQ SCH (16:00)
[2020-02-25] MEDS ORDERED: EPOETIN ALFA 20,000 UNIT/1 ML VIAL SQ SCH (16:00)
[2020-02-25] MEDS: HYDROMORPHONE HCL 1 MG/ML INJ IV PRN ×2 (16:13→22:54)
[2020-02-25] MEDS: IRON SUCROSE 200 MG in NA CHLORIDE 0.9% 250 ML IV SCH (16:15)
[2020-02-25 16:37] LABS: Absolute Lymphocytes (CBC) 0.7 K/uL (0.7-4.9); Basophils % 0.1 % (0-1.3); Lymphocytes % 9.5 % (15.3-44.8); MPV 8.4 fL (7.6-11.3); RBC Red Blood Cell Count 2.42 M/uL (3.86-4.86)
--- NOTE | 2020-02-25 17:24 | P.PN ---
Subjective Date of Service: 02/25/20 Patient to the OR today. Will monitor closely. Patient anemic and spoke with family and they are still wanting to proceed with surgery. Will need to give Procrit and iron infusions. Hopefully patient does not get severely anemic. Will monitor very closely. Review of Systems is unable to be obtained Physical Examination - Vital Signs Temperature: 97.8 F Blood Pressure: 95/52 Pulse: 64 Respirations: 17 Pulse Ox (%): 100 - Physical Exam General: Demented Respiratory: Clear to auscultation bilaterally, Normal air movement Cardiovascular: Regular rate/rhythm, Normal S1 S2 Gastrointestinal: Normal bowel sounds, Soft and benign, Non-distended Musculoskeletal: No clubbing, No swelling, No contractures Assessment & Plan - Problems (Diagnosis) (1) Femur fracture, left Current Visit: Yes Status: Acute Qualifiers: Encounter type: initial encounter Femur location: intertrochanteric Fracture type: closed Fracture alignment: nondisplaced Qualified Code(s): S72.145A - Nondisplaced intertrochanteric fracture of left femur, initial encounter for closed fracture (2) Alzheimer's type dementia Current Visit: Yes Status: Acute (3) Hypertension Current Visit: Yes Status: Acute (4) Coronary artery disease Current Visit: Yes Status: Acute (5) Patient is Anabaptist Current Visit: Yes Status: Acute - Plan Plan: 1. Gentle IV hydration 2. Orthopedic consultation appreciated 3. Pain controlled 4. DVT prophylaxis-Will hold around the perioperative period as patient is a Jehovah Witness and does not want blood transfusions and already anemic 5. Physical therapy after surgery 6. EKG and monitor hemodynamics closely. 7. Patient did well postoperatively. Hemoglobin only dropped to 6.8. She looks like she is doing well clinically. Spoke to the patient's daughter and they do want her to still be a full code. Explained that she would get Epogen and iron transfusion to help with the anemia-agreeable. Hopefully this will benefit her. Will monitor the patient closely. Discharge Plan: [facility] Plan to discharge in: Greater than 2 days - Advance Directives Does patient have a Living Will: Yes Does patient have a Durable POA for Healthcare: Yes - Code Status/Comfort Care Code Status: Full Code Critical Care: No Time Spent Managing PTS Care (In Minutes): 35
[2020-02-25 18:43] LABS: Blood Morphology Comment NOT SEEN (NOT SEEN); Platelet Estimate ADEQ; White Blood Cell Scan OK (OK)
[2020-02-25] MEDS: ATORVASTATIN 20 MG TAB PO SCH (21:02)
[2020-02-25] MEDS: MIRTAZAPINE 15 MG TAB PO SCH (21:02)
[2020-02-25] MEDS: DONEPEZIL HCL 5 MG TAB PO SCH (21:02)
[2020-02-26] MEDS: CEFAZOLIN/SWI 1gm 1 GM/10 ML SYR IVP SCH ×2 (00:07→09:45)
[2020-02-26] MEDS: NA CHLORIDE 0.9% 1,000 ML IV SCH (05:02)
[2020-02-26 06:22] LABS: Potassium 4.3 mmol/L (3.5-5.1)
[2020-02-26] MEDS ORDERED: TRAMADOL HCL 50 MG TAB PO PRN (07:56)
[2020-02-26] MEDS ORDERED: HYDROCODONE/APAP 7.5/325 MG TAB PO PRN (07:56)
[2020-02-26 08:51] LABS: Absolute Lymphocytes (CBC) 1.7 K/uL (0.7-4.9); Basophils % 0.6 % (0-1.3); Hematocrit 17.5 % (36.0-45.0); MPV 8.3 fL (7.6-11.3); RBC Red Blood Cell Count 2.01 M/uL (3.86-4.86)
[2020-02-26] MEDS ORDERED: Meropenem 1000 MG/VIAL IV SCH (09:00)
[2020-02-26] MEDS ORDERED: Meropenem 1,000 MG in NA CHLORIDE 0.9% 100 ML IV SCH (09:00)
[2020-02-26] MEDS: ENOXAPARIN 40 MG/0.4 ML SQ SCH ×2 (09:00→16:40)
[2020-02-26] MEDS: SITAGLIPTIN PHOS 100 MG TAB PO SCH (09:00)
[2020-02-26] MEDS: IRON SUCROSE 200 MG in NA CHLORIDE 0.9% 250 ML IV SCH (09:44)
[2020-02-26] MEDS: INSULIN GLARGINE 100 UNITS/ML SQ SCH (09:45)
[2020-02-26] MEDS: ESCITALOPRAM 20 MG TAB PO SCH (09:46)
[2020-02-26] MEDS: FOLIC ACID 1 MG TABLET PO SCH (09:46)
[2020-02-26 11:26] LABS: Ferritin 88.2 ng/mL (8-388)
--- NOTE | 2020-02-26 11:48 | P.PN ---
Subjective Date of Service: 02/26/20 Chief Complaint: Status post fall with femur fracture Subjective: Demented Physical Examination - Vital Signs Temperature: 98.3 F Blood Pressure: 99/44 Pulse: 78 Respirations: 16 Pulse Ox (%): 98 - Physical Exam General: Alert, Demented (moderate to severe) HEENT: Atraumatic Neck: Supple Respiratory: Clear to auscultation bilaterally, Normal air movement Cardiovascular: Normal pulses, Regular rate/rhythm Gastrointestinal: Normal bowel sounds, No masses, No rebound, No guarding Neurological: Normal speech, Normal strength at 5/5 x4 extr, Normal tone, Dementia - Studies Microbiology Data (last 24 hrs): 02/24/20 10:50 Catheterized Urine [place] Count - Final >100,000 CFU/ML. 02/24/20 10:50 Catheterized Urine - Final Escherichia Coli Esbl Medications List Reviewed: Yes Assessment & Plan Discharge Plan: Care Home Plan to discharge in: 48 Hours Physician Review Additional Text: Impression: Fall leading to left intertrochanteric nondisplaced femur fracture Postoperative anemia with underlying B12 deficiency complicated with patient being Restorationism Diabetes mellitus type 2 insulin-dependent Alzheimer's dementia Cystitis-urine culture E coli-ESBL Plan: Fall leading to left intertrochanteric nondisplaced femur fracture: Patient to work with physical therapy. May need to hold Lovenox due to acute anemia. Patient is Restorationism. This was discussed in detail with family. Patient with dementia. No blood products as the patient is Restorationism. Patient given iron. Will start B12 replacement. Will continue monitor closely. Postoperative anemia with underlying B12 deficiency complicated with patient being Restorationism: Patient continues to be anemic. Hemoglobin has dropped. Patient is Restorationism. No blood products to be given. This was discussed in detail with family. Family understands that if anemia persists or worsens this may lead to possible cardiac arrest or other sequelae. Patient did receive Procrit and iron. Patient also B12 deficient. Will replace B12. Continue to monitor closely. Will need to consider holding Lovenox due to anemia. Will monitor closely. Diabetes mellitus type 2 insulin-dependent: Continue insulin. Discontinue oral medication. Continue Accu-Cheks and sliding scale. Alzheimer's dementia: Continue home medication. Cystitis-urine culture E coli-ESBL: Patient asymptomatic. Likely just cystitis. No need for IV antibiotic therapy at this time. Will start Macrobid. Case discussed in detail with pharmacy. Time Spent Managing Pts Care (In Minutes): 55
[2020-02-26] MEDS ORDERED: D50W 25 GM/50 ML SYRINGE/VIAL IV PRN (12:31)
[2020-02-26] MEDS ORDERED: GLUCAGON 1 MG/VIAL IM PRN (12:31)
[2020-02-26] MEDS: INSULIN -REGULAR HUMAN 50 UNIT/0.5 ML ML SQ SCH ×3 (13:15→21:00)
[2020-02-26] MEDS: NITROFURAN MACRO 100 MG CAP PO SCH (16:40)
--- NOTE | 2020-02-26 19:13 | OP ---
Date of Procedure: 02/25/2020 Surgeon: Wilber Mcmillan MD Preoperative Diagnosis: Comminuted highly displaced intertrochanteric fracture on the left with subt rochanteric extension. Postoperative Diagnosis: Comminuted highly displaced intertrochanteric fracture on the left with sub trochanteric extension. Procedure: Closed reduction with intramedullary leah fixation using Affixus long intramedullary nail. Estimated Blood Loss: 100 cc. Complications: There were no complications. Pathology: No pathology specimen sent. Indication For Operation: Ms. Rodriguez is a 74-year-old female, who unfortunately suffers from some co gnitive impairment, who injured her left lower extremity. She was seen in the emergency department w here she was ruled out for other injuries; however, x-rays demonstrated a highly displaced comminuted intertrochanteric fracture with subtrochanteric extension. The risks, benefits, and alternatives ar e attempted to be discussed with the patient; however, her cognitive ability really does not assist u s much in this direction. Nurses and also anesthesia were able to get a hold there. The family who live out of [place] and consent has been done. Also, there has been specific consent done for blood pr oducts. Family states that she is Confucianism and does not want any blood products given even in the case of a life-threatening problem, so we explained to them that this fracture is leading into her thigh, which is the reason for the hemoglobin drop and delaying surgery without options for givi ng blood products really would not be helpful. Therefore, decision was made to proceed even though h er hemoglobin is relatively well or may go lower, later the things as presented and wishes to proceed as well as other risks outlined in the consent form. Description Of Procedure: The patient was taken to the operating room, placed in supine position, an d general anesthesia was obtained by staff. Following this, she was then transferred onto the fractu re table. Fracture table was then appropriately positioned and the C-arm was used to get good AP and lateral views. A significant amount of reduction maneuver was done using traction as well as rotati on and other methods to align this as well as possible. After this, the left lower extremity was the n prepped and draped in usual sterile fashion. A standard incision was then made just proximal to th e greater trochanter. This was somewhat more proximal to allow for better ability to come medial. A starting awl was then used on the most lateral aspect of the neck, intentionally not placing in the trochanters as it was highly comminuted and usually would lead to malplacement. This was placed in t he guide and was placed without difficulty down to the distal end of the femur. It was then reamed t o a size 10.5. Obviously we could have used a nail with a larger diameter and continue reaming; contreras silvana, given the patient's hemoglobin, decision was made to simply place the . It was then p laced at appropriate depth. Cephalomedullary screw was then placed and observed under biplanar C-arm radiography. Following this, a little bit of compression was applied to the to the fracture. It wa s then locked in place superiorly. The guide was removed and attention was turned distally where silvano ropriate circles were used to place a distal interlocking screw. After this, this was again rechecke d and the wounds were irrigated. The fascia was closed in a watertight fashion. There was some blee ding from the cephalomedullary incision. This was most likely from the fracture itself and there was really no way to stop this, but it should stop with time. There was no brisk bleeding. Following t his, the skin was closed using Vicryl followed by melani. The patient was placed an Aquacel dressin g, awakened, and taken to the recovery room in good condition. No complications. /REFUGIO Voice ID: [id number] Report ID: [id number]
[2020-02-26] MEDS: DONEPEZIL HCL 5 MG TAB PO SCH (21:20)
[2020-02-26] MEDS: ATORVASTATIN 20 MG TAB PO SCH (21:21)
[2020-02-26] MEDS: MIRTAZAPINE 15 MG TAB PO SCH (21:21)
--- NOTE | 2020-02-27 06:05 | PN ---
Date of Progress Note: 02/26/2020 The patient is seen today. She still has dementia. She does not really have any significant complai nts. She does have a hemoglobin of 5.7, which is quite low. The patient and the patient's family becerra ve stated they would not like any blood products even if clinically indicated. Dr. Borges is aware o f this and he does have her on iron and B12. I definitely agree with no Lovenox. She will continue touchdown weightbearing. Hopefully, her hemoglobin will stabilize and she will not be symptomatic fr om that, which would decrease her ability to participate in the mobility. She should continue to be touchdown weightbearing. Obviously, we would recommend transfusion if possible; however, this is not possible based on the patient and family's wishes. However, Dr. Borges is definitely in contact gaston ESTRADA Voice ID: [id number] Report ID: [id number]
[2020-02-27] MEDS: INSULIN -REGULAR HUMAN 50 UNIT/0.5 ML ML SQ SCH ×4 (07:30→20:50)
[2020-02-27 08:02] LABS: Absolute Lymphocytes (CBC) 1.6 K/uL (0.7-4.9); Basophils % 0.6 % (0-1.3); Hematocrit 16.8 % (36.0-45.0); MPV 8.5 fL (7.6-11.3); RBC Red Blood Cell Count 1.93 M/uL (3.86-4.86)
[2020-02-27 08:10] LABS: Magnesium 2.4 mg/dL (1.8-2.4); Potassium 3.6 mmol/L (3.5-5.1)
[2020-02-27] MEDS: NITROFURAN MACRO 100 MG CAP PO SCH ×2 (08:20→16:31)
[2020-02-27] MEDS: FOLIC ACID 1 MG TABLET PO SCH (08:20)
[2020-02-27] MEDS: ESCITALOPRAM 20 MG TAB PO SCH (08:20)
[2020-02-27] MEDS: CYANOCOBALAMIN 1,000 MCG TAB PO SCH (08:20)
--- NOTE | 2020-02-27 08:21 | P.PN ---
Subjective Date of Service: 02/27/20 Chief Complaint: Status post fall with femur fracture Subjective: Demented, Other (Patient appears stable. No complaints noted.) Physical Examination - Vital Signs Temperature: 96.9 F Blood Pressure: 134/58 Pulse: 82 Respirations: 16 Pulse Ox (%): 97 - Physical Exam General: Alert, Demented HEENT: Atraumatic Neck: Supple Respiratory: Clear to auscultation bilaterally, Normal air movement Cardiovascular: Normal pulses, Regular rate/rhythm Gastrointestinal: Normal bowel sounds, Soft and benign, Non-distended Neurological: Normal speech, Normal strength at 5/5 x4 extr, Normal tone, Dementia - Studies Microbiology Data (last 24 hrs): 02/24/20 10:50 Catheterized Urine [place] Count - Final >100,000 CFU/ML. 02/24/20 10:50 Catheterized Urine - Final Escherichia Coli Esbl Medications List Reviewed: Yes Assessment & Plan Discharge Plan: Jail Plan to discharge in: 48 Hours Physician Review Additional Text: Impression: Fall leading to comminuted highly displaced intertrochanteric fracture on the left with sub trochanteric extension status post closed reduction with intra medullary leah fixation Postoperative anemia with underlying B12 deficiency complicated with patient being Taoism Diabetes mellitus type 2 insulin-dependent Alzheimer's dementia Cystitis-urine culture E coli-ESBL Hypernatremia likely from poor oral intake Plan: Fall leading to comminuted highly displaced intertrochanteric fracture on the left with sub trochanteric extension status post closed reduction with intra medullary leah fixation: Continue with physical therapy. Continue to hold Lovenox due to postoperative anemia. This was discussed in detail with family and orthopedics. Risk outweighed benefit at this time as the patient is Taoism and does not want any blood product. Continue to monitor hemoglobin. Encourage ambulation. Encourage oral intake. Will monitor closely. Anticipate discharge back to the retirement likely in the next 48 hr. Postoperative anemia with underlying B12 deficiency complicated with patient being Taoism: Patient remains anemic. Hemoglobin 5.5. Will monitor closely. Patient is Taoism. No blood products as per family. Continue with B12 supplementation. Continue with iron supplementation. Will monitor closely. Lovenox currently on hold due to acute postop anemia. This was addressed in detail with orthopedics. Risks outweigh benefit at this time. Will provide SCD. Diabetes mellitus type 2 insulin-dependent: Will decrease Lantus. Provide sliding scale. Alzheimer's dementia: Continue home medication. Cystitis-urine culture E coli-ESBL: Patient asymptomatic. Likely just cystitis. No need for IV antibiotic therapy at this time. Continue Macrobid for 7 days. Case discussed in detail with pharmacy. Hypernatremia likely from poor oral intake: Will provide D5 W. Recheck lab later today. Dietary to address daily needs. Encourage oral intake. Time Spent Managing Pts Care (In Minutes): 55
[2020-02-27] MEDS: D5W 1,000 ML IV SCH (09:00)
[2020-02-27] MEDS: INSULIN GLARGINE 100 UNITS/ML SQ SCH (09:00)
[2020-02-27] MEDS: IRON SUCROSE 200 MG in NA CHLORIDE 0.9% 250 ML IV SCH (10:42)
[2020-02-27 15:45] LABS: Potassium 3.7 mmol/L (3.5-5.1)
[2020-02-27] MEDS: HYDROMORPHONE HCL 1 MG/ML INJ IV PRN (16:30)
[2020-02-27] MEDS: MIRTAZAPINE 15 MG TAB PO SCH (19:59)
[2020-02-27] MEDS: DONEPEZIL HCL 5 MG TAB PO SCH (19:59)
[2020-02-27] MEDS: ATORVASTATIN 20 MG TAB PO SCH (19:59)
[2020-02-27] MEDS: GLUCERNA SHAKE 237 ML CAN PO SCH (19:59)
[2020-02-28] MEDS: D5W 1,000 ML IV SCH (00:54)
[2020-02-28 04:41] LABS: Absolute Lymphocytes (CBC) 1.9 K/uL (0.7-4.9); Basophils % 0.6 % (0-1.3); Lymphocytes % 27.9 % (15.3-44.8); MPV 8.8 fL (7.6-11.3); RBC Red Blood Cell Count 1.87 M/uL (3.86-4.86)
[2020-02-28 04:43] LABS: Hematocrit 16.5 % (36.0-45.0)
[2020-02-28] MEDS: INSULIN -REGULAR HUMAN 50 UNIT/0.5 ML ML SQ SCH ×4 (07:30→20:36)
[2020-02-28] MEDS: INSULIN GLARGINE 100 UNITS/ML SQ SCH (08:14)
[2020-02-28] MEDS: NITROFURAN MACRO 100 MG CAP PO SCH ×2 (08:15→16:37)
[2020-02-28] MEDS: ESCITALOPRAM 20 MG TAB PO SCH (08:15)
[2020-02-28] MEDS: CYANOCOBALAMIN 1,000 MCG TAB PO SCH (08:15)
[2020-02-28] MEDS: FOLIC ACID 1 MG TABLET PO SCH (08:15)
[2020-02-28] MEDS: GLUCERNA SHAKE 237 ML CAN PO SCH ×2 (08:16→21:23)
[2020-02-28] MEDS: IRON SUCROSE 200 MG in NA CHLORIDE 0.9% 250 ML IV SCH (09:00)
[2020-02-28] MEDS: SOD FERRIC GLUC COMPLX/SUCROSE 250 MG in NA CHLORIDE 0.9% 250 ML IV SCH (10:13)
--- NOTE | 2020-02-28 12:04 | P.PN ---
Subjective Date of Service: 02/28/20 Chief Complaint: Status post fall with femur fracture Subjective: Demented (Patient with advanced dementia.) Physical Examination - Vital Signs Temperature: 97.4 F Blood Pressure: 128/60 Pulse: 76 Respirations: 18 Pulse Ox (%): 100 - Physical Exam General: Alert, Demented (Advanced dementia) HEENT: Atraumatic Neck: Supple Respiratory: Normal air movement Cardiovascular: Normal pulses, Regular rate/rhythm Gastrointestinal: Normal bowel sounds, No masses, No rebound, No guarding Integumentary: No erythema, No warmth, No cyanosis Neurological: Normal strength at 5/5 x4 extr, Normal tone, Dementia - Studies Medications List Reviewed: Yes Assessment & Plan Discharge Plan: Alf Plan to discharge in: 48 Hours Physician Review Additional Text: Impression: Fall leading to comminuted highly displaced intertrochanteric fracture on the left with sub trochanteric extension status post closed reduction with intra m edullary leah fixation Postoperative anemia with underlying B12 deficiency complicated with patient being Sikh Diabetes mellitus type 2 insulin-dependent Alzheimer's dementia Cystitis-urine culture E coli-ESBL Hypernatremia likely from poor oral intake Plan: Fall leading to comminuted highly displaced intertrochanteric fracture on the left with sub trochanteric extension status post closed reduction with intra medullary leah fixation: Physical therapy has not been started due to anemia. Will check to see if they would be able to at least evaluate ambulation. Hemoglobin remains low. Case discussed with family yesterday. They wish to make her do not resuscitate. This was changed yesterday. Case also discuss with social worker and case management. Will need to see what patient will be able to do an know what her retirement would be able to provide. Clinical sent to retirement. If hemoglobin stable may be able to transfer patient to retirement where they can eventually consider starting physical therapy. Continue iron supplementation along with B12. Postoperative anemia with underlying B12 deficiency complicated with patient being Sikh: Patient remains anemic. Hemoglobin slightly lower than yesterday. No blood products per family as the patient is a Sikh. Continue with supplementation. Lovenox remains on hold due to postoperative anemia. Diabetes mellitus type 2 insulin-dependent: Will continue to adjust medication. Provide sliding scale. Alzheimer's dementia: Continue home medication. Cystitis-urine culture E coli-ESBL: Patient asymptomatic. Likely just cystitis. No need for IV antibiotic therapy at this time. Continue Macrobid for 7 days. Case discussed in detail with pharmacy. Hypernatremia likely from poor oral intake: Continue with IV fluid. Will continue to monitor and adjust. Encourage oral intake. Time Spent Managing Pts Care (In Minutes): 55
--- NOTE | 2020-02-28 15:49 | PN ---
Date of Progress Note: 02/28/2020 The patient is seen today. Her hemoglobin is remaining fairly steady, now being 5.4. Obviously, the re have been multiple discussions regarding transfusion; however, family says the patient's wishes wo uld be to not have a transfusion. Otherwise, her dressing is doing well and she was discharged to re move her melani postop day 12-14. Anticoagulation would normally be suggested; however, given her v moses low hemoglobin, we will leave this to the medical team. She should be touchdown weightbearing un til I see her in my office and get x-rays in 6 weeks or if she goes to a facility, we will keep her t ouchdown weightbearing if possible until 6 weeks. /REFUGIO Voice ID: [id number] Report ID: [id number]
[2020-02-28] MEDS: MIRTAZAPINE 15 MG TAB PO SCH (21:22)
[2020-02-28] MEDS: DONEPEZIL HCL 5 MG TAB PO SCH (21:22)
[2020-02-28] MEDS: ATORVASTATIN 20 MG TAB PO SCH (21:23)
[2020-02-28 22:19] VITALS: O2SAT 99
[2020-02-29 04:14] LABS: Basophils % 0.6 % (0-1.3); Lymphocytes % 26.3 % (15.3-44.8); MPV 8.9 fL (7.6-11.3); RBC Red Blood Cell Count 1.87 M/uL (3.86-4.86)
[2020-02-29 04:16] LABS: Hematocrit 16.4 % (36.0-45.0)
[2020-02-29] MEDS: INSULIN -REGULAR HUMAN 50 UNIT/0.5 ML ML SQ SCH ×4 (07:30→20:43)
[2020-02-29] MEDS: SOD FERRIC GLUC COMPLX/SUCROSE 250 MG in NA CHLORIDE 0.9% 250 ML IV SCH (09:01)
[2020-02-29] MEDS: NITROFURAN MACRO 100 MG CAP PO SCH ×2 (09:02→16:25)
[2020-02-29] MEDS: ESCITALOPRAM 20 MG TAB PO SCH (09:04)
[2020-02-29] MEDS: GLUCERNA SHAKE 237 ML CAN PO SCH ×2 (09:04→20:42)
[2020-02-29] MEDS: CYANOCOBALAMIN 1,000 MCG TAB PO SCH (09:05)
[2020-02-29] MEDS: FOLIC ACID 1 MG TABLET PO SCH (09:05)
[2020-02-29] MEDS: INSULIN GLARGINE 100 UNITS/ML SQ SCH (09:06)
--- NOTE | 2020-02-29 11:41 | P.DS ---
Admission Date: 02/24/20 Discharge Date: 02/29/20 Primary Care Provider: long-term Disposition: TRANSFER TO RESIDENTIAL Discharge Condition: GOOD Reason for Admission: Status post fall with femur fracture Consultations: Orthopedics-Dr. Mcmillan Procedures: Xray: FINDINGS: AP and oblique views of the left hip joint were obtained. Patient had limited mobility. Comminuted proximal left femur fracture is present. No dislocation of the femoral head. No AVN or focal femoral head abnormality. Lesser trochanter is a free fracture fragment with the fracture fragment extending approximately 4 cm along the medial shaft. There is an oblique intertrochanteric fracture present. Superior aspect of the greater trochanter also appears to be a free fracture f ragment with only a few mm of distraction. No pathologic bone changes seen. Soft tissue edema or swelling present around the hip joint but no large hematoma identifiable. IMPRESSION: Comminuted proximal left femur fracture as detailed. Surgery: Date of Procedure: 02/25/2020 Surgeon: Wilber Mcmillan MD Preoperative Diagnosis: Comminuted highly displaced intertrochanteric fracture on the left with subtrochanteric extension. Postoperative Diagnosis: Comminuted highly displaced intertrochanteric fracture on the left with subtrochanteric extension. Procedure: Closed reduction with intramedullary leah fixation using Affixus long intramedullary nail. Estimated Blood Loss: 100 cc. Complications: There were no complications. Medical Problem List: Fall leading to comminuted highly displaced intertrochanteric fracture on the left with sub trochanteric extension status post closed reduction with intra medullary leah fixation Postoperative anemia with underlying B12 deficiency complicated with patient being Yazidism Diabetes mellitus type 2 insulin-dependent Alzheimer's dementia Cystitis-urine culture E coli-ESBL Hypernatremia likely from poor oral intake Hyperlipidemia Depression with anxiety Brief History of Present Illness: 74-year-old female with history of advanced dementia. She apparently fell at the assisted. She is found to have fracture to the left femur. Patient admitted for further evaluation and treatment Hospital Course: Patient presented with fall at the assisted. She was found to have a comminuted highly displaced intertrochanteric fracture on the left with subtrochanteric extension. Patient was evaluated by orthopedics. Orthopedics recommended intervention. Patient had a close reduction with intra medullary leah fixation. Patient tolerated procedure well, post operatively patient became anemic. Patient has underlying chronic anemia. Patient is also Yazidism. The family did not want any blood products for her. She did receive IV iron and B12 supplementation. The hemoglobin continued dropped to about 5.5. This delayed physical therapy. Lovenox was held due to her anemia. Patient has remained stable but not able to do physical therapy due to her anemia. Advanced directives were readdressed. Family has made her do not resuscitate. Advanced care planning was also addressed with family. Patient will return to the assisted with [id number] DNR and with hospice in place. Patient will continue with iron and B12 supplementation. Patient currently bed-bound at this time. Patient may have touchdown weight-bearing on the left side if with assistance. If this is not able to be done then this can be considered again at the assisted after 5-6 weeks. Preston to be removed on the 14th day post operatively. Patient will need a follow up with orthopedics in 6 weeks. Recommend recheck lab-CBC in 1-2 weeks to monitor her progress. At discharge patient has done well. Pain well controlled. Will provide tramadol 50 mg 1 pil l 3 times a day as needed for pain. No need for DVT prophylaxis due to her anemia. This was discussed in detail with family. They understand Risks and benefits addressed. At discharge patient will go to the assisted as mentioned above. Patient with diabetes mellitus type 2 insulin dependent. This has remained stable. Patient previously on Invokana and Januvia. Invokana has been discont inued as this may increase risk for infection-UTI. At discharge she will continue with her current insulin regimen-Levemir 20 units subcu at bedtime and Januvia 100 mg daily. Recommend to maintain blood sugar less than 140 fasting and less than 200 after meals. Further adjustment in insulin will need to be addressed at the assisted if the patient has episodes of hypoglycemia. Further adjustment can be done by her PCP. Patient with underlying Alzheimer's dementia. This has remained stable. Alzheimer's is advanced. She also has depression with anxiety. Patient will continue with her current medication Aricept 10 mg daily, Lexapro 10 mg daily and mirtazapine 15 mg at bedtime. Patient was found to have cystitis with urine culture positive for E coli-ESBL. Patient was asymptomatic. No IV antibiotic therapy was recommended. Patient has done well with Macrobid. Patient will continue with macrobid for total 7 days(4 days left). UTI prevention will need to be enforced. Please note Invokana has been discontinued as this may increase her risk of UTI. Patient with hyperlipidemia. At discharge she will continue with Lipitor 20 mg daily. Vital Signs/Physical Exam: Temp Pulse Resp BP Pulse Ox 97.5 F 68 16 114/42 L 99 02/29/20 08:00 02/29/20 08:00 02/29/20 08:00 02/29/20 08:00 02/29/20 08:00 General: Alert, Demented (Patient with advanced dementia) HEENT: Atraumatic Neck: Supple Respiratory: Clear to auscultation bilaterally, Normal air movement Cardiovascular: Normal pulses, Regular rate/rhythm Gastrointestinal: Normal bowel sounds, Soft and benign, Non-distended, No tenderness, No masses, No rebound, No guarding Musculoskeletal: No erythema, No tenderness, No warmth Integumentary: No tenderness/swelling, No erythema, No warmth, No cyanosis Neurological: Normal speech, Normal strength at 5/5 x4 extr, Normal tone, Normal affect Laboratory Data at Discharge: WBC 7.8 K/uL (4.3-10.9) D 02/29/20 03:49 Hgb 5.5 g/dL (12.0-15.0) L* 02/29/20 03:49 Hct 16.4 % (36.0-45.0) L* 02/29/20 03:49 Plt Count 187 K/uL (152-406) 02/29/20 03:49 PT 12.4 SECONDS (9.5-12.5) 02/25/20 06:00 INR 1.05 02/25/20 06:00 APTT 27.3 SECONDS (24.3-36.9) 02/25/20 06:00 Sodium 147 mmol/L (136-145) H 02/28/20 04:11 Potassium 4.0 mmol/L (3.5-5.1) 02/28/20 04:11 BUN 16 mg/dL (7-18) 02/28/20 04:11 Creatinine 0.66 mg/dL (0.55-1.3) 02/28/20 04:11 Glucose 146 mg/dL (74-106) H 02/28/20 04:11 Phosphorus 3.5 mg/dL (2.5-4.9) 02/25/20 06:00 Magnesium 2.4 mg/dL (1.8-2.4) 02/27/20 07:32 Total Bilirubin 0.5 mg/dL (0.2-1.0) 02/25/20 06:00 AST 21 U/L (15-37) 02/25/20 06:00 ALT 19 U/L (12-78) 02/25/20 06:00 Alkaline Phosphatase 100 U/L (45-117) 02/25/20 06:00 Home Medications: Atorvastatin Calcium 20 mg PO BEDTIME 02/24/20 Donepezil [Aricept*] 2 tab PO BEDTIME 02/24/20 Escitalopram Oxalate [Lexapro] 1 tab PO DAILY 02/24/20 Folic Acid 1 mg PO DAILY 02/24/20 Insulin Detemir [Levemir Flextouch] 20 unit SQ DAILY 02/24/20 Mirtazapine 15 mg PO BEDTIME 02/24/20 Secukinumab [Cosentyx Pen] 150 mg SQ SEECOM 02/24/20 Sitagliptin Phosphate [Januvia*] 1 tab PO DAILY 02/24/20 Skin Cleanser [Cetaphil] 1 silvano TOP BEDTIME 02/24/20 Cyanocobalamin [Vitamin B-12*] 1,000 mcg PO DAILY #90 tab 02/29/20 Ferrous Sulfate [Iron] 325 mg PO BID #60 tablet 02/29/20 Nitrofuran Macro [Macrobid*] 100 mg PO BIDWM #8 cap 02/29/20 traMADol HCL [Ultram*] 50 mg PO TID PRN #10 tab 02/29/20 New Medications: Ferrous Sulfate [Iron] 325 mg PO BID #60 tablet Nitrofuran Macro [Macrobid*] 100 mg PO BIDWM #8 cap traMADol HCL [Ultram*] 50 mg PO TID PRN #10 tab PRN Reason: PAIN Cyanocobalamin [Vitamin B-12*] 1,000 mcg PO DAILY #90 tab Patient Discharge Instructions: 1. Patient will return to the assisted with hospice in place. 2. Patient presented with fall at the assisted. She was found to have a comminuted highly displaced intertrochanteric fracture on the left with subtrochanteric extension. Patient was evaluated by orthopedics. Orthopedics recommended intervention. Patient had a close reduction with intra medullary leah fixation. Patient tolerated procedure well, post operatively patient became anemic. Patient has underlying chronic anemia. Patient is also Yazidism. The family did not want any blood products for her. She did receive IV iron and B12 supplementation. The hemoglobin continued dropped to about 5.5. This delayed physical therapy. Lovenox was held due to her anemia. Patient has remained stable but not able to do physical therapy due to her anemia. Advanced directives were readdressed. Family has made her do not resuscitate. Advanced care planning was also addressed with family. Patient will return to the assisted with [id number] DNR and with hospice in place. Patient will continue with iron and B12 supplementation. Patient currently bed-bound at this time. Patient may have touchdown weight-bearing on the left side if with assistance. If this is not able to be done then this can be considered again at the assisted after 5-6 weeks. Preston to be removed on the 14th day post operatively. Patient will need a follow up with orthopedics in 6 weeks. Recommend recheck lab-CBC in 1-2 weeks to monitor her progress. At discharge patient has done well. Pain well controlled. Will provide tramadol 50 mg 1 pill 3 times a day as needed for pain. No need for DVT prophylaxis due to her anemia. This was discussed in detail with family. They understand Risks and benefits addressed. At discharge patient will go to the assisted as mentioned above. 3. Patient with diabetes mellitus type 2 insulin dependent. This has remained stable. Patient previously on Invokana and Januvia. Invokana has been discontinued as this may increase risk for infection-UTI. At discharge she will continue with her current insulin regimen- Levemir 20 units subcu at bedtime and Januvia 100 mg daily. Recommend to maintain blood sugar less than 140 fasting and less than 200 after meals. Further adjustment in insulin will need to be addressed at the assisted if the patient has episodes of hypoglycemia. Further adjustment can be done by her PCP. 4. Patient with underlying Alzheimer's dementia. This has remained stable. Alzheimer's is advanced. She also has depression with anxiety. Patient will continue with her current medication Aricept 10 mg daily, Lexapro 10 mg daily and mirtazapine 15 mg at bedtime. 5. Patient was found to have cystitis with urine culture positive for E coli-ESBL. Patient was asymptomatic. No IV antibiotic therapy was recommended. Patient has done well with Macrobid. Patient will continue with macrobid for total 7 days(4 days left). UTI prevention will need to be enforced. Please note Invokana has been discontinued as this may increase her risk of UTI. 6. Patient with hyperlipidemia. At discharge she will continue with Lipitor 20 mg daily. Diet: ADA Activity: Bedrest Time spent managing pt's care (in minutes): 55
[2020-02-29] MEDS: ATORVASTATIN 20 MG TAB PO SCH (20:41)
[2020-02-29] MEDS: MIRTAZAPINE 15 MG TAB PO SCH (20:41)
[2020-02-29] MEDS: DONEPEZIL HCL 5 MG TAB PO SCH (20:41)
[2020-02-29 22:05] VITALS: BP 129/60; TEMP 97.7
== END 2020-02-29 23:45 | disposition hospice, inpatient (51) | DRG 481 ==
LOC: ER 09:47 → ERHOLD 12:07 → 2ND 13:35
PROVIDERS: ADMIT Hospitalist; ATTEND Family Medicine
PROC: 0QS736Z Reposition Left Upper Femur with Intramedullary Internal Fixation Device, Percutaneous Approach (ICD-10-PCS; principal; 2020-02-25 08:00)
DX: S72.145A Nondisplaced intertrochanteric fracture of left femur, initial encounter for closed fracture (principal); Z16.12 Extended spectrum beta lactamase (ESBL) resistance; E87.0 Hyperosmolality and hypernatremia; K21.9 Gastro-esophageal reflux disease without esophagitis; I25.10 Atherosclerotic heart disease of native coronary artery without angina pectoris; E11.9 Type 2 diabetes mellitus without complications; I10 Essential (primary) hypertension; G30.9 Alzheimer's disease, unspecified; F02.80 Dementia in other diseases classified elsewhere, unspecified severity, without behavioral disturbance, psychotic disturbance, mood disturbance, and anxiety; D51.9 Vitamin B12 deficiency anemia, unspecified; B96.20 Unspecified Escherichia coli [E. coli] as the cause of diseases classified elsewhere; N30.90 Cystitis, unspecified without hematuria; F41.8 Other specified anxiety disorders; W01.198A Fall on same level from slipping, tripping and stumbling with subsequent striking against other object, initial encounter; E78.5 Hyperlipidemia, unspecified; Z66 Do not resuscitate; Z79.899 Other long term (current) drug therapy; Z53.1 Procedure and treatment not carried out because of patient's decision for reasons of belief and group pressure; Z79.4 Long term (current) use of insulin; Z20.828 Contact with and (suspected) exposure to other viral communicable diseases
CPT/HCPCS: 36415; 51702; 71045; 72170; 73530; 80048; 80053; 80076; 81003; 82607; 82728; 82947; 83540; 83735; 83880; 84100; 84466; 84484; 85025; 85610; 85730; 86850; 86900; 86901; 87077; 87086; 87088; 87186; 93005; 96361; 96374; 97110; 97112; 97161; 97530; 99285; G0390; J0690; J1100; J1170; J1815; J2185; J2370; J2704; J2916; J3010; J3480; J7030; J7050; Q4081; U0003